=== PATIENT | female | born 1995 | race Two or more races ===

== ENCOUNTER 2019-11-07 22:39 | Emergency (ER) | payer SELFPAY ==
[~2019-11-07] VITALS: Ht 160 cm; Wt 78.0 kg
[2019-11-08] MEDS ORDERED: HYDROCODONE/ACETAMINOPHEN 5/325MG TABLET PO ONE
[2019-11-08] MEDS ORDERED: GABAPENTIN 300MG CAPSULE PO SCH
[2019-11-08] MEDS ORDERED: IBUPROFEN 600MG TABLET PO ONE
[2019-11-08 03:24] VITALS: BP 124/68
== END 2019-11-08 03:15 | disposition home or self-care (01) ==
LOC: ER 22:39
DX: S13.9XXA Sprain of joints and ligaments of unspecified parts of neck, initial encounter (principal); S13.4XXA Sprain of ligaments of cervical spine, initial encounter; M54.9 Dorsalgia, unspecified; F41.9 Anxiety disorder, unspecified; V43.52XA Car driver injured in collision with other type car in traffic accident, initial encounter; Y93.89 Activity, other specified; Y92.410 Unspecified street and highway as the place of occurrence of the external cause
CPT/HCPCS: 71046; 72040; 99284